=== PATIENT | male | born 2000 | race African-American/Black ===

== ENCOUNTER 2020-10-11 19:40 | Emergency (ER) | payer MEDICAID ==
[~2020-10-11] VITALS: Ht 175.3 cm; Wt 69.0 kg
[2020-10-11] MEDS ORDERED: DIPHENHYDRAMINE 50MG/ML VIAL IM STA (21:03)
[2020-10-11] MEDS ORDERED: HALOPERIDOL LACTATE 5MG/ML VIAL IM STA (21:03)
[2020-10-11] MEDS ORDERED: LORAZEPAM 2MG/ML CPJ IM STA (21:03)
[2020-10-11] MEDS ORDERED: SODIUM CHLORIDE 0.9% 1,000 ML IV ONE (21:15)
[2020-10-11] MEDS ORDERED: LORAZEPAM 2MG/ML CPJ IM NR (21:15)
[2020-10-11 21:46] LABS: BASOPHILS % 0.6 % (0.0-2.0); EOSINOPHILS % 0.2 % (0.0-5.0); HEMATOCRIT. 46.6 % (42.0-52.0); HEMOGLOBIN. 15.8 g/dL (14.0-18.0); LYMPHOCYTES % 13.5 % (20.0-50.0); MEAN CORPUSCULAR HEMOGLOBIN 33.2 pg (28.0-32.0); MEAN PLATELET VOLUME 8.5 fl (7.4-10.4); MONOCYTES % 6.6 % (2.0-8.0); NEUTROPHILS % 79.1 % (40.0-76.0); PLATELET 302 x1000/uL (130-400); RED BLOOD CELL COUNT 4.76 mill/uL (4.7-6.1); RED CELL DISTRIBUTION WIDTH 14.2 % (11.6-14.6)
[2020-10-11 21:52] LABS: CHLORIDE 113 mEq/L (98-107)
[2020-10-11 21:57] LABS: ETHANOL BLOOD 292 mg/dL
[2020-10-12] MEDS ORDERED: BACITRACIN ZINC OINT UDPKT TOP ONE (03:00)
[2020-10-12] MEDS ORDERED: LIDOCAINE HCL 1% 20ML VIAL (Pyxis) INJ INFIL ONE (03:00)
[2020-10-12 04:52] LABS: CLARITY URINE CLEAR (CLEAR); COLOR URINE YELLOW (YELLOW); KETONES URINE NEGATIVE (NEGATIVE); LEUKOCYTE ESTERASE URINE NEGATIVE (NEGATIVE); NITRITE URINE NEGATIVE (NEGATIVE); OCCULT BLOOD URINE NEGATIVE (NEGATIVE); PROTEIN URINE 1+ (NEGATIVE); SPECIFIC GRAVITY URINE 1.026 (1.005-1.030)
[2020-10-12 05:03] LABS: *AMPHETAMINES SCREEN URINE NEGATIVE (NEGATIVE); CANNABINOID URINE SCREEN PRESUMTIVE POSITIVE (NEGATIVE); PHENCYCLIDINE URINE SCREEN NEGATIVE (NEGATIVE)
[2020-10-12 05:04] LABS: *BARBITURATES SCREEN URINE NEGATIVE (NEGATIVE); *BENZODIAZEPINES SCREEN URINE NEGATIVE (NEGATIVE); *COCAINE SCREEN URINE NEGATIVE (NEGATIVE); METHADONE URINE SCREEN NEGATIVE (NEGATIVE); OPIATES URINE SCREEN PRESUMTIVE POSITIVE (NEGATIVE)
[2020-10-12] MEDS ORDERED: TETANUS, DIPHTHERIA, PERTUSSIS VAC/PF 0.5ML (>7YR OLD) IM ONE (05:45)
[2020-10-12] MEDS ORDERED: CEPH500T MT (06:13)
[2020-10-12 07:10] VITALS: BP 128/84
== END 2020-10-12 07:17 ==
LOC: ER 19:40
DX: T51.0X1A Toxic effect of ethanol, accidental (unintentional), initial encounter (principal); S61.411A Laceration without foreign body of right hand, initial encounter; R41.82 Altered mental status, unspecified; F17.200 Nicotine dependence, unspecified, uncomplicated; X58.XXXA Exposure to other specified factors, initial encounter; Y93.89 Activity, other specified; Y92.89 Other specified places as the place of occurrence of the external cause; Y99.8 Other external cause status
CPT/HCPCS: 12001; 36415; 71045; 73130; 80053; 80305; 80307; 80320; 80329; 81003; 84443; 85025; 90471; 90715; 96360; 96361; 96372; 99285; J1200; J1630; J2060; J3490; J7030; Z7610; G0480

== ENCOUNTER 2021-06-04 05:17 | Emergency (ER) | payer MEDICAID, OTHER ==
[~2021-06-04] VITALS: Ht 182.9 cm; Wt 64.4 kg
[~2021-06-04 05:17] MED LIST: CEPH500T MT
[2021-06-04 05:24] VITALS: BP 139/80
[2021-06-04] MEDS ORDERED: ALBUTEROL (0.083%) 2.5MG/3ML NEB HHN STA (06:00)
[2021-06-04] MEDS ORDERED: IPRATROPIUM BROMIDE (0.02%) 0.5MG/2.5ML NEB HHN STA (06:00)
[2021-06-04] MEDS ORDERED: PREDNISONE 20MG TABLET PO STA (06:00)
[2021-06-04] MEDS ORDERED: ACETAMINOPHEN 325MG TABLET PO ONE (06:45)
== END 2021-06-04 06:40 | disposition left against medical advice (07) ==
LOC: ER 05:17
DX: U07.1 COVID-19 (principal); J45.909 Unspecified asthma, uncomplicated
CPT/HCPCS: 87426; 93005; 94644; 99285; J7512; Z7610